=== PATIENT | female | born 1975 | race Two or more races ===

== ENCOUNTER 2025-01-01 09:31 | Emergency (ER) | payer MEDICAID ==
[2025-01-01] MEDS: Acetaminophen 325 MG Tab PO ONE (09:53)
== END 2025-01-01 12:27 | disposition home or self-care (01) ==
LOC: MW.ED 09:31
DX: M25.461 Effusion, right knee (principal); M25.561 Pain in right knee; Z88.5 Allergy status to narcotic agent; Z79.899 Other long term (current) drug therapy
CPT/HCPCS: 73562; 76881; 93971; 99284; A9270; 99282